=== PATIENT | female | born 1945 | race Caucasian/White ===

== ENCOUNTER → 2017-07-13 | Outpatient (CLI) | payer OTHER ==
[~2017-07-13] MED LIST: CITALOPRAM HBR40 MG PO; HYDROCHLOROTH12.5 MG PO; LISINOPRIL10 MG PO; MAGNESIUM27 MG; MELATONIN1 MG PO; PRAVASTATIN SOD40 MG PO; PROTONIX PO
--- NOTE | ~2017-07-13 | MY29 ---
[facility] A Service of [facility] / [facility] RADIOLOGY TEXT RESULTS PATIENT: JAREN MENDOZA LOCATION: [facility] : 47 UNIT #: [id number] AGE: [address]: Jessi Castellanos MD SEX: F ORDER DR: [id number] [facility]. [place], [place] [address] [id number] O MR#: [id number] Acc #: [id number] NAME: JAREN MENDOZA : 1945 SEX: F STUDY DATE/TIME: 07/13/2017 12:39 UNIT: [facility] ROOM: STUDY DESCRIPTION: MY NEISHA SCREENING W/ CAD BILAT Attending Physician: Jessi Castellanos M.D. Referring Physician: Jessi Castellanos M.D. Ordering Physician: Jessi Castellanos M.D. Primary Care Physician: Jessi Castellanos M.D. MEDICAL IMAGING REPORT This report is preliminary unless electronic signature is present EXAM Bilateral digital screening mammogram with CAD. DATE 07/13/2017 HISTORY Family history of breast cancer in her mother. Benign right breast surgery, fibrocystic changes. No documented personal history of breast cancer. No current complaints. COMPARISON Bilateral screening mammogram performed at [facility], 08/12/2016. FINDINGS Scattered fibroglandular densities are present bilaterally. A linear marker was placed over the right breast denoting the surgical scar. Multiple round markers have been placed over each breast denoting skin lesions. No suspicious nodule, nonsurgical architectural distortion or microcalcification is seen. IMPRESSION 1. BIRADS 1. Negative screening mammogram. Routine screening mammogram recommended in year. Patients over the age of 40 are entered into a reminder system with target due date for the next mammogram. A result letter will also be sent to the patient. BIRADS: 1 Negative. [facility] A Service of [facility] & [facility] RADIOLOGY TEXT RESULTS PATIENT: JAREN MENDOZA LOCATION: [facility] : 47 UNIT #: [id number] AGE: [address]: Jessi Castellanos MD SEX: F ORDER DR: Dictated by... Prisca Wray M.D. THIS IS AN ELECTRONICALLY VERIFIED REPORT Prisca Wray M.D. at 07/15/2017 1:11 PM KINA/sathish TD: 07/14/2017 20:47 JOB #: [id number] MEDICAL IMAGING REPORT Page 1 of 1 COPY
== END | disposition home or self-care (01) ==
LOC: CWCC 12:08
DX: Z12.31 Encounter for screening mammogram for malignant neoplasm of breast (principal); Z80.3 Family history of malignant neoplasm of breast; Z98.890 Other specified postprocedural states; Z88.1 Allergy status to other antibiotic agents; Z88.0 Allergy status to penicillin
CPT/HCPCS: G0202